=== PATIENT | female | born 1945 | race Caucasian/White ===

== ENCOUNTER 2018-01-31 09:54 | Outpatient (CLI) | payer MEDICARE | END 2018-01-31 09:55 | disposition home or self-care (01) | LOC: BICMAMMO 09:54 | PROVIDERS: ATTEND Obstetrics & Gynecology | DX: Z12.31 Encounter for screening mammogram for malignant neoplasm of breast (principal); R92.1 Mammographic calcification found on diagnostic imaging of breast | CPT/HCPCS: 77063; 77067 ==

== ENCOUNTER 2019-02-01 09:34 | Outpatient (CLI) | payer MEDICARE ==
--- NOTE | 2019-02-01 11:19 | MMO ---
Bilateral MAMMO Bilat Screen [facility]. CLINICAL HISTORY: Patient is 73 years old and is seen for screening. The patient has the following family history of breast cancer: sister. The patient has no personal history of cancer. VIEWS: The views performed were: bilateral craniocaudal with tomosynthesis and bilateral mediolateral oblique with tomosynthesis. FILMS COMPARED: The present examination has been compared to prior imaging studies performed at [facility] on 01/26/2015, 01/29/2016, 01/30/2017 and 01/31/2018. MAMMOGRAM FINDINGS: There are scattered fibroglandular densities. There are no suspicious masses, calcifications or areas of architectural distortion. There are benign appearing calcifications in both breasts. There are no suspicious masses, suspicious calcifications, or new areas of architectural distortion. IMPRESSION: THERE IS NO MAMMOGRAPHIC EVIDENCE OF MALIGNANCY. A ROUTINE FOLLOW-UP MAMMOGRAM IN 1 YEAR IS RECOMMENDED. THE RESULTS OF THIS EXAM WERE SENT TO THE PATIENT. ACR BI-RADS Category 2 - Benign finding MAMMOGRAPHY NOTE: 1. A negative mammogram report should not delay a biopsy if a dominant of clinically suspicious mass is present. 2. Approximately 10% to 15% of breast cancers are not detected by mammography. 3. Adenosis and dense breasts may obscure an underlying neoplasm. Reported by: ZUNILDA PATEL MD Electonically Signed: [id number]
== END 2019-02-01 09:35 | disposition home or self-care (01) ==
LOC: BICMAMMO 09:34
PROVIDERS: ATTEND Obstetrics & Gynecology
DX: Z12.31 Encounter for screening mammogram for malignant neoplasm of breast (principal); Z80.3 Family history of malignant neoplasm of breast
CPT/HCPCS: 77063; 77067

== ENCOUNTER 2020-02-04 08:31 | Outpatient (CLI) | payer MEDICARE ==
--- NOTE | 2020-02-04 09:12 | MMO ---
Bilateral MAMMO Bilat Screen [facility]. CLINICAL HISTORY: Patient is 74 years old and is seen for screening. The patient has the following family history of breast cancer: sister. The patient has no personal history of cancer. VIEWS: The views performed were: bilateral craniocaudal with tomosynthesis and bilateral mediolateral oblique with tomosynthesis. FILMS COMPARED: The present examination has been compared to prior imaging studies performed at [facility] on 01/29/2016, 01/30/2017, 01/31/2018 and 02/01/2019. This study has been interpreted with the assistance of computer-aided detection. MAMMOGRAM FINDINGS: There are scattered fibroglandular densities. Finding 1: There are stable benign appearing calcifications seen in both breasts. Finding 2: There are stable benign appearing densities seen in both breasts. There are no suspicious masses, suspicious calcifications, or new areas of architectural distortion. IMPRESSION: THERE IS NO MAMMOGRAPHIC EVIDENCE OF MALIGNANCY. A ROUTINE FOLLOW-UP MAMMOGRAM IN 1 YEAR IS RECOMMENDED. THE RESULTS OF THIS EXAM WERE SENT TO THE PATIENT. ACR BI-RADS Category 2 - Benign finding MAMMOGRAPHY NOTE: 1. A negative mammogram report should not delay a biopsy if a dominant of clinically suspicious mass is present. 2. Approximately 10% to 15% of breast cancers are not detected by mammography. 3. Adenosis and dense breasts may obscure an underlying neoplasm. Reported by: ANDREEA URIARTE MD Electonically Signed: [id number]
== END 2020-02-04 08:32 | disposition home or self-care (01) ==
LOC: BICMAMMO 08:31
PROVIDERS: ATTEND Obstetrics & Gynecology
DX: Z12.31 Encounter for screening mammogram for malignant neoplasm of breast (principal); Z80.3 Family history of malignant neoplasm of breast
CPT/HCPCS: 77063; 77067

== ENCOUNTER 2021-11-28 19:15 | Inpatient (IN) | payer MEDICARE ==
[2021-11-28 20:03] LABS: #Lymphocytes 1.2 thou/uL (1.20-3.40); #Monocytes 1.9 thou/uL (0.11-0.59); #Neutrophils 10.6 thou/uL (1.40-6.50); %Eosinophils 0.1 % (0.0-10.0); %Lymphocytes 8.5 % (21.0-51.0); %Monocytes 14.1 % (0.0-10.0); %Neutrophils 77.4 % (42.0-75.0); Hemoglobin 15.4 g/dL (12.0-16.0); Mean Corpuscular HGB CONC 36.4 g/dL (32.0-36.0); Mean Corpuscular Hemoglobin 35.8 pg (27.0-31.0); Mean Corpuscular Volume 98.5 fL (78.0-98.0); Mean Platelet Volume 7.3 fL (7.4-10.4); Platelet Count 218 thou/uL (130-400); RBC Distribution Width 10.9 % (11.5-14.5); White Blood Cell (WBC) Count 13.7 thou/uL (4.8-10.8)
[2021-11-28 20:23] LABS: Bacteria/HPF None Seen HPF (None Seen); Bilirubin Negative (Negative); Blood, Urine 1+ (Negative); Clarity Turbid (Clear); Glucose, Urine (Dipstick) Normal (Negative); Ketone, Urine Trace mg/dL (Negative); Leukocyte Negative Leu/uL (Negative); Nitrite Negative (Negative); Protein, Urine (Dipstick) 70 mg/dL (Neg-Trace); RBC/HPF 0-3 HPF (0-3); Renal Epithelial 0-3 HPF (None Seen); Squamous Epithelial 0-3 HPF (0-3); Urobilinogen Normal mg/dL (Less than 2); WBC/HPF 0-3 HPF (0-3); pH, Urine 5.5 (5.0-9.0)
[2021-11-28 20:24] LABS: ALT (SGPT) 38 U/L (8-55); AST (SGOT) 106 U/L (5-34); Albumin 4.5 g/dL (3.4-4.8); Alkaline Phosphatase 43 U/L (40-110); Anion Gap 18 mmol/L (10-20); BUN (Urea Nitrogen) 31 mg/dL (9.8-20.1); Bilirubin, Total 1.8 mg/dL (0.2-1.2); Calc. Creatinine Clearance 0 mL/min (70-130); Calcium 9.9 mg/dL (7.8-10.44); Carbon Dioxide 24 mmol/L (23-31); Chloride 103 mmol/L (98-107); Glucose 124 mg/dL (83-110); Lipase 25 U/L (8-78); Potassium 3.6 mmol/L (3.5-5.1); Protein, Total 7.5 g/dL (5.8-8.1); Sodium 141 mmol/L (136-145)
[2021-11-28 20:39] LABS: CK (CPK) 4371 U/L (29-168)
[2021-11-28] MEDS ORDERED: HYDROcodone/Acetaminophen 5/325 mg Tablet PO PRN (23:43)
[2021-11-28] MEDS ORDERED: Ondansetron PF 4 MG/2 ML Vial IVP PRN (23:43)
[2021-11-28] MEDS ORDERED: Acetaminophen 325 MG TAB PO PRN (23:43)
[2021-11-29] MEDS: Sodium Chloride 0.9% 1,000 ML IV SCH ×2 (00:34→07:51)
[2021-11-29 05:53] LABS: Anion Gap 10 mmol/L (10-20); BUN (Urea Nitrogen) 21 mg/dL (9.8-20.1); CK (CPK) 3284 U/L (29-168); Calc. Creatinine Clearance 57 mL/min (70-130); Calcium 8.2 mg/dL (7.8-10.44); Carbon Dioxide 27 mmol/L (23-31); Chloride 113 mmol/L (98-107); Glucose 89 mg/dL (83-110); Potassium 3.9 mmol/L (3.5-5.1); Sodium 146 mmol/L (136-145)
[2021-11-29 05:59] LABS: Band 7 % (5-11); Hemoglobin 12.2 g/dL (12.0-16.0); Lymphocytes 19 % (21-51); MDiff Complete? YES; Mean Corpuscular HGB CONC 34.6 g/dL (32.0-36.0); Mean Platelet Volume 6.9 fL (7.4-10.4); Monocytes 5 % (0-10); Neutrophil 60 % (42-75); Platelet Count 169 thou/uL (130-400); Platelet Morphology Comment Appears Adequate; RBC Morphology Normal; Reactive Lymphocytes 9 % (0-10); Red Blood Cell (RBC) Count 3.48 mill/uL (4.20-5.40); White Blood Cell (WBC) Count 9.6 thou/uL (4.8-10.8)
[2021-11-29] MEDS: Lactated Ringer's 1,000 ML IV SCH ×2 (08:37→22:38)
[2021-11-29] MEDS ORDERED: Heparin 5,000 UNITS/ML VIAL SC SCH (09:00)
[2021-11-29] MEDS ORDERED: Enoxaparin Sodium 40 MG/0.4 ML SYRINGE SC SCH (09:00)
[2021-11-29] MEDS ORDERED: Enoxaparin Sodium 40 MG/0.4 ML SYRINGE ONE (09:10)
[2021-11-29] MEDS ORDERED: Digoxin 0.5 MG/2 ML AMP ONE (12:32)
[2021-11-29] MEDS ORDERED: Magnesium 2 GM/50 ML BAG (IN WATER) ONE (12:32)
[2021-11-29 13:17] LABS: #Lymphocytes 1.6 thou/uL (1.20-3.40); #Monocytes 0.8 thou/uL (0.11-0.59); #Neutrophils 5.7 thou/uL (1.40-6.50); %Eosinophils 0.1 % (0.0-10.0); %Lymphocytes 19.6 % (21.0-51.0); %Monocytes 9.4 % (0.0-10.0); Hemoglobin 12.5 g/dL (12.0-16.0); Mean Corpuscular HGB CONC 34.9 g/dL (32.0-36.0); Mean Corpuscular Hemoglobin 35.1 pg (27.0-31.0); Mean Platelet Volume 7.2 fL (7.4-10.4); Platelet Count 167 thou/uL (130-400); Red Blood Cell (RBC) Count 3.55 mill/uL (4.20-5.40); White Blood Cell (WBC) Count 8.1 thou/uL (4.8-10.8)
[2021-11-29 13:49] LABS: ALT (SGPT) 32 U/L (8-55); AST (SGOT) 92 U/L (5-34); Albumin 3.4 g/dL (3.4-4.8); Alkaline Phosphatase 37 U/L (40-110); Anion Gap 14 mmol/L (10-20); BUN (Urea Nitrogen) 16 mg/dL (9.8-20.1); Bilirubin, Total 1.1 mg/dL (0.2-1.2); Calc. Creatinine Clearance 58 mL/min (70-130); Calcium 8.1 mg/dL (7.8-10.44); Carbon Dioxide 21 mmol/L (23-31); Chloride 111 mmol/L (98-107); Globulin 2.4 g/dL (2.4-3.5); Glucose 143 mg/dL (83-110); Magnesium 3.3 mg/dL (1.6-2.6); Potassium 3.2 mmol/L (3.5-5.1); Protein, Total 5.8 g/dL (5.8-8.1); Sodium 143 mmol/L (136-145)
[2021-11-29] MEDS ORDERED: Diltiazem 125 MG/25 ML ONE ×2 (13:55→13:59)
[2021-11-29] MEDS ORDERED: Iopamidol-370 76% 500 ML 1 ML ONE (14:00)
[2021-11-29] MEDS ORDERED: Benzonatate 100 MG CAP PO PRN (15:08)
[2021-11-29] MEDS ORDERED: Amiodarone 150 MG/3 ML VIAL ONE (17:42)
[2021-11-29] MEDS ORDERED: Communication Order-Pharmacy FS ONE (17:52)
[2021-11-29] MEDS ORDERED: Amiodarone 450 MG, Admixture Fee 1 EACH in Dextrose 5% in Water 250 ML IVPB SCH (18:00)
[2021-11-29] MEDS ORDERED: Albuterol 200 PUFF (6.7GM INHALER) INH PRN (18:30)
[2021-11-29] MEDS: Enoxaparin Sodium 60 MG/0.6 ML SYRINGE SC SCH (22:37)
[2021-11-30] MEDS: Lactated Ringer's 1,000 ML IV SCH ×3 (00:17→16:49)
[2021-11-30 04:24] LABS: #Lymphocytes 1.3 thou/uL (1.20-3.40); #Monocytes 0.8 thou/uL (0.11-0.59); %Basophils 0.6 % (0.0-1.0); %Eosinophils 0.3 % (0.0-10.0); %Lymphocytes 18.2 % (21.0-51.0); %Monocytes 11.5 % (0.0-10.0); %Neutrophils 69.4 % (42.0-75.0); Hemoglobin 11.8 g/dL (12.0-16.0); Mean Corpuscular Hemoglobin 35.1 pg (27.0-31.0); Mean Platelet Volume 6.9 fL (7.4-10.4); Platelet Count 161 thou/uL (130-400); RBC Distribution Width 10.8 % (11.5-14.5); Red Blood Cell (RBC) Count 3.37 mill/uL (4.20-5.40); White Blood Cell (WBC) Count 7.2 thou/uL (4.8-10.8)
[2021-11-30 04:45] LABS: Anion Gap 13 mmol/L (10-20); BUN (Urea Nitrogen) 9 mg/dL (9.8-20.1); CK (CPK) 2333 U/L (29-168); Calc. Creatinine Clearance 72 mL/min (70-130); Calcium 7.8 mg/dL (7.8-10.44); Carbon Dioxide 24 mmol/L (23-31); Chloride 106 mmol/L (98-107); Glucose 100 mg/dL (83-110); Magnesium 1.8 mg/dL (1.6-2.6); Sodium 140 mmol/L (136-145)
[2021-11-30] MEDS ORDERED: Potassium Chloride 40 MEQ in Premix Bag 1 BAG IVPB SCH (09:00)
[2021-11-30] MEDS: Potassium Chloride 20 MEQ in Premix Bag 1 BAG IVPB SCH ×2 (12:39→14:48)
[2021-11-30] MEDS: Enoxaparin Sodium 60 MG/0.6 ML SYRINGE SC SCH ×2 (12:39→22:09)
[2021-11-30 14:49] VITALS: BMI 22.1
[2021-11-30] MEDS: Icosapent Ethyl 1 GM CAPSULE PO SCH (19:20)
[2021-11-30] MEDS: Dronedarone HCl 400 MG TAB PO SCH (19:20)
[2021-11-30] MEDS: Brimonidine Tartrate 0.2% Ophth Soln 5 ml Bottle EA EYE SCH (22:08)
[2021-11-30] MEDS: Timolol 0.5% Ophth Soln 5 ml Bottle EA EYE SCH (22:09)
[2021-11-30] MEDS: Atorvastatin Calcium 10 MG TAB PO SCH (22:09)
[2021-12-01] MEDS: Lactated Ringer's 1,000 ML IV SCH ×4 (02:00→20:19)
[2021-12-01 05:18] LABS: #Basophils 0.1 thou/uL (0.0-0.2); #Eosinphils 0.1 thou/uL (0.0-0.7); #Monocytes 0.7 thou/uL (0.11-0.59); #Neutrophils 4.3 thou/uL (1.40-6.50); %Basophils 1.6 % (0.0-1.0); %Eosinophils 0.9 % (0.0-10.0); %Lymphocytes 16.1 % (21.0-51.0); %Monocytes 11.8 % (0.0-10.0); %Neutrophils 69.6 % (42.0-75.0); Hemoglobin 12.2 g/dL (12.0-16.0); Mean Corpuscular HGB CONC 34.7 g/dL (32.0-36.0); Mean Corpuscular Hemoglobin 34.6 pg (27.0-31.0); Mean Corpuscular Volume 99.9 fL (78.0-98.0); Mean Platelet Volume 6.9 fL (7.4-10.4); Platelet Count 161 thou/uL (130-400); RBC Distribution Width 10.9 % (11.5-14.5); Red Blood Cell (RBC) Count 3.54 mill/uL (4.20-5.40); White Blood Cell (WBC) Count 6.2 thou/uL (4.8-10.8)
[2021-12-01 05:48] LABS: ALT (SGPT) 38 U/L (8-55); AST (SGOT) 91 U/L (5-34); Albumin 3.2 g/dL (3.4-4.8); Alkaline Phosphatase 34 U/L (40-110); Anion Gap 10 mmol/L (10-20); BUN (Urea Nitrogen) 5 mg/dL (9.8-20.1); Bilirubin, Total 1.3 mg/dL (0.2-1.2); CK (CPK) 1947 U/L (29-168); Calc. Creatinine Clearance 77 mL/min (70-130); Calcium 8.4 mg/dL (7.8-10.44); Carbon Dioxide 28 mmol/L (23-31); Chloride 106 mmol/L (98-107); Estimated GFR 95; Globulin 2.3 g/dL (2.4-3.5); Glucose 88 mg/dL (83-110); Magnesium 1.6 mg/dL (1.6-2.6); Potassium 3.4 mmol/L (3.5-5.1); Protein, Total 5.5 g/dL (5.8-8.1); Sodium 141 mmol/L (136-145)
[2021-12-01] MEDS: Icosapent Ethyl 1 GM CAPSULE PO SCH ×2 (10:02→18:38)
[2021-12-01] MEDS: Enoxaparin Sodium 60 MG/0.6 ML SYRINGE SC SCH ×2 (10:02→20:18)
[2021-12-01] MEDS: Dronedarone HCl 400 MG TAB PO SCH ×2 (10:03→18:38)
[2021-12-01] MEDS: Lisinopril 20 MG TAB PO SCH (10:03)
[2021-12-01] MEDS: Brimonidine Tartrate 0.2% Ophth Soln 5 ml Bottle EA EYE SCH ×2 (10:04→20:18)
[2021-12-01] MEDS: Timolol 0.5% Ophth Soln 5 ml Bottle EA EYE SCH ×2 (10:04→20:18)
[2021-12-01] MEDS: Atorvastatin Calcium 10 MG TAB PO SCH (20:17)
[2021-12-02 04:46] LABS: #Eosinphils 0.1 thou/uL (0.0-0.7); #Lymphocytes 1.2 thou/uL (1.20-3.40); #Monocytes 0.7 thou/uL (0.11-0.59); #Neutrophils 4.1 thou/uL (1.40-6.50); %Basophils 0.1 % (0.0-1.0); %Eosinophils 1.4 % (0.0-10.0); %Lymphocytes 19.8 % (21.0-51.0); %Neutrophils 66.7 % (42.0-75.0); Hemoglobin 11.3 g/dL (12.0-16.0); Mean Corpuscular HGB CONC 34.1 g/dL (32.0-36.0); Mean Corpuscular Volume 99.9 fL (78.0-98.0); Mean Platelet Volume 6.6 fL (7.4-10.4); Platelet Count 160 thou/uL (130-400); RBC Distribution Width 10.9 % (11.5-14.5); Red Blood Cell (RBC) Count 3.32 mill/uL (4.20-5.40); White Blood Cell (WBC) Count 6.2 thou/uL (4.8-10.8)
[2021-12-02 05:11] LABS: Anion Gap 11 mmol/L (10-20); BUN (Urea Nitrogen) 7 mg/dL (9.8-20.1); CK (CPK) 1070 U/L (29-168); Calc. Creatinine Clearance 75 mL/min (70-130); Calcium 8.1 mg/dL (7.8-10.44); Carbon Dioxide 28 mmol/L (23-31); Chloride 106 mmol/L (98-107); Estimated GFR 94; Glucose 89 mg/dL (83-110); Potassium 3.1 mmol/L (3.5-5.1); Sodium 142 mmol/L (136-145)
[2021-12-02] MEDS: Lactated Ringer's 1,000 ML IV SCH ×2 (06:18→14:35)
[2021-12-02] MEDS ORDERED: Dronedarone HCl 400 MG TAB PO SCH (09:30)
[2021-12-02] MEDS: Dronedarone HCl 400 MG TAB PO SCH ×2 (10:07→19:25)
[2021-12-02] MEDS: Icosapent Ethyl 1 GM CAPSULE PO SCH ×2 (10:07→19:25)
[2021-12-02] MEDS: Lisinopril 20 MG TAB PO SCH (10:08)
[2021-12-02] MEDS: Apixaban 5 MG TAB PO SCH ×2 (10:09→21:27)
[2021-12-02] MEDS: Brimonidine Tartrate 0.2% Ophth Soln 5 ml Bottle EA EYE SCH ×2 (10:09→21:28)
[2021-12-02] MEDS: Timolol 0.5% Ophth Soln 5 ml Bottle EA EYE SCH ×2 (10:09→21:27)
[2021-12-02] MEDS ORDERED: Potassium Chloride 20 MEQ TAB PO SCH (15:00)
[2021-12-02] MEDS: Atorvastatin Calcium 10 MG TAB PO SCH (21:27)
[2021-12-03 08:36] LABS: #Eosinphils 0.1 thou/uL (0.0-0.7); #Lymphocytes 1.2 thou/uL (1.20-3.40); #Monocytes 0.8 thou/uL (0.11-0.59); #Neutrophils 5.6 thou/uL (1.40-6.50); %Basophils 0.3 % (0.0-1.0); %Eosinophils 1.3 % (0.0-10.0); %Lymphocytes 15.3 % (21.0-51.0); %Monocytes 10.8 % (0.0-10.0); %Neutrophils 72.4 % (42.0-75.0); Hemoglobin 12.1 g/dL (12.0-16.0); Mean Corpuscular HGB CONC 34.7 g/dL (32.0-36.0); Mean Corpuscular Hemoglobin 34.1 pg (27.0-31.0); Mean Corpuscular Volume 98.5 fL (78.0-98.0); Mean Platelet Volume 6.8 fL (7.4-10.4); Platelet Count 196 thou/uL (130-400); Red Blood Cell (RBC) Count 3.55 mill/uL (4.20-5.40); White Blood Cell (WBC) Count 7.8 thou/uL (4.8-10.8)
[2021-12-03 08:56] LABS: Anion Gap 12 mmol/L (10-20); BUN (Urea Nitrogen) 10 mg/dL (9.8-20.1); Calc. Creatinine Clearance 68 mL/min (70-130); Calcium 8.3 mg/dL (7.8-10.44); Carbon Dioxide 26 mmol/L (23-31); Chloride 106 mmol/L (98-107); Estimated GFR 92; Glucose 98 mg/dL (83-110); Potassium 3.2 mmol/L (3.5-5.1); Sodium 141 mmol/L (136-145)
[2021-12-03] MEDS: Apixaban 5 MG TAB PO SCH (10:34)
[2021-12-03] MEDS: Lisinopril 20 MG TAB PO SCH (10:34)
[2021-12-03] MEDS: Dronedarone HCl 400 MG TAB PO SCH (10:34)
[2021-12-03] MEDS: Brimonidine Tartrate 0.2% Ophth Soln 5 ml Bottle EA EYE SCH (10:35)
[2021-12-03] MEDS: Timolol 0.5% Ophth Soln 5 ml Bottle EA EYE SCH (10:35)
[2021-12-03] MEDS: Icosapent Ethyl 1 GM CAPSULE PO SCH (10:44)
[2021-12-03 11:26] VITALS: BP 146/80; TEMP 96.8
[2021-12-07] MEDS ORDERED: Non-Formulary Item 1 EACH (Alendronate Sodium [Alendronate Sodium] 35 MG Tablet) PO SCH (09:00)
== END 2021-12-03 15:50 | disposition swing bed (61) | DRG 557 ==
LOC: ERS 19:15 → ERHOLD 21:35 → 2NO 11-29 20:25
PROVIDERS: ADMIT Hospitalist; ATTEND Hospitalist
PROC: 8E0ZXY6 Isolation (ICD-10-PCS; principal; 2021-11-28)
DX: M62.82 Rhabdomyolysis (principal); U07.1 COVID-19; I48.0 Paroxysmal atrial fibrillation; E86.0 Dehydration; G24.3 Spasmodic torticollis; E86.1 Hypovolemia; F17.210 Nicotine dependence, cigarettes, uncomplicated; I10 Essential (primary) hypertension; E78.5 Hyperlipidemia, unspecified; Z98.42 Cataract extraction status, left eye; Z98.41 Cataract extraction status, right eye; Z82.49 Family history of ischemic heart disease and other diseases of the circulatory system; Z95.810 Presence of automatic (implantable) cardiac defibrillator; Z79.899 Other long term (current) drug therapy
CPT/HCPCS: 36415; 51701; 70450; 71045; 71275; 80048; 80053; 81003; 81015; 82140; 82550; 83690; 83735; 83880; 84443; 84484; 85025; 87040; 93005; 93010; 93306; 96365; 96366; 96375; 96376; J0282; J1160; J1650; J3475; J3480; J7050; J7070; J7120; Q9967; U0003; U0005

== ENCOUNTER 2022-12-28 07:13 | Inpatient (IN) | payer MEDICARE ==
[2022-12-28] MEDS ORDERED: GASTROGRAFIN 30 ML BOT ONE (09:27)
[2022-12-28 15:49] LABS: #Basophils 0.1 thou/uL (0.0-0.2); #Eosinphils 0.2 thou/uL (0.0-0.7); #Monocytes 0.8 thou/uL (0.11-0.59); #Neutrophils 8.8 thou/uL (1.40-6.50); %Basophils 0.5 % (0.0-1.0); %Eosinophils 1.3 % (0.0-10.0); %Lymphocytes 13.8 % (21.0-51.0); %Monocytes 6.9 % (0.0-10.0); %Neutrophils 77.1 % (42.0-75.0); Hemoglobin 14.2 g/dL (12.0-16.0); Mean Corpuscular HGB CONC 34.4 g/dL (32.0-36.0); Mean Corpuscular Hemoglobin 33.6 pg (27.0-31.0); Mean Corpuscular Volume 97.6 fl (78.0-98.0); Mean Platelet Volume 9.4 fL (7.4-10.4); Platelet Count 264 10x3/uL (130-400); RBC Distribution Width 14.1 % (11.5-14.5); Red Blood Cell (RBC) Count 4.23 mill/uL (4.20-5.40); White Blood Cell (WBC) Count 11.4 10x3/uL (4.8-10.8)
[2022-12-28] MEDS ORDERED: Acetaminophen 650 MG Suppository PR PRN (15:57)
[2022-12-28] MEDS ORDERED: Ondansetron PF 4 MG/2 ML Vial IVP PRN (15:57)
[2022-12-28 16:15] LABS: ALT (SGPT) 32 U/L (8-55); AST (SGOT) 29 U/L (5-34); Albumin 3.8 g/dL (3.4-4.8); Alkaline Phosphatase 67 U/L (40-110); Anion Gap 11 mmol/L (10-20); BUN (Urea Nitrogen) 21 mg/dL (9.8-20.1); Bilirubin, Total 0.6 mg/dL (0.2-1.2); Calc. Creatinine Clearance 0 mL/min (70-130); Calcium 9.4 mg/dL (7.8-10.44); Carbon Dioxide 30 mmol/L (23-31); Chloride 100 mmol/L (98-107); Estimated GFR 92; Globulin 3.1 g/dL (2.4-3.5); Glucose 92 mg/dL (83-110); Potassium 4.3 mmol/L (3.5-5.1); Protein, Total 6.9 g/dL (5.8-8.1); Sodium 137 mmol/L (136-145)
[2022-12-28] MEDS ORDERED: Piperacillin/Tazobactam 4.5 GM VIAL ONE (16:17)
[2022-12-28] MEDS ORDERED: Dextrose 5 %-0.45 % NaCl 1,000 ML IV SCH (16:45)
[2022-12-28 18:21] VITALS: BMI 18.3
[2022-12-28] MEDS: Famotidine/PF 20 mg/2ml Vial SLOW IVP SCH (20:54)
[2022-12-28] MEDS: Piperacillin/Tazobactam 3.375 GM in Sodium Chloride 0.9% 100 ML IVPB SCH (20:55)
[2022-12-28] MEDS ORDERED: Piperacillin/Tazobactam 4.5 GM in Sodium Chloride 0.9% 100 ML IVPB SCH (22:00)
[2022-12-29] MEDS: Piperacillin/Tazobactam 3.375 GM in Sodium Chloride 0.9% 100 ML IVPB SCH ×3 (03:51→20:17)
[2022-12-29 05:39] LABS: #Basophils 0.1 thou/uL (0.0-0.2); #Eosinphils 0.2 thou/uL (0.0-0.7); #Neutrophils 6.6 thou/uL (1.40-6.50); %Basophils 0.8 % (0.0-1.0); %Eosinophils 1.6 % (0.0-10.0); %Lymphocytes 18.1 % (21.0-51.0); %Monocytes 10.4 % (0.0-10.0); %Neutrophils 68.8 % (42.0-75.0); Hemoglobin 13.7 g/dL (12.0-16.0); Mean Corpuscular HGB CONC 34.5 g/dL (32.0-36.0); Mean Corpuscular Hemoglobin 34.2 pg (27.0-31.0); Mean Platelet Volume 9.3 fL (7.4-10.4); Platelet Count 237 10x3/uL (130-400); RBC Distribution Width 13.8 % (11.5-14.5); Red Blood Cell (RBC) Count 4.01 mill/uL (4.20-5.40); White Blood Cell (WBC) Count 9.6 10x3/uL (4.8-10.8)
[2022-12-29 09:18] LABS: Anion Gap 12 mmol/L (10-20); BUN (Urea Nitrogen) 20 mg/dL (9.8-20.1); Calc. Creatinine Clearance 53 mL/min (70-130); Calcium 9.3 mg/dL (7.8-10.44); Carbon Dioxide 27 mmol/L (23-31); Chloride 105 mmol/L (98-107); Estimated GFR 86; Glucose 97 mg/dL (83-110); Potassium 4.2 mmol/L (3.5-5.1); Sodium 140 mmol/L (136-145)
[2022-12-29] MEDS: Famotidine/PF 20 mg/2ml Vial SLOW IVP SCH ×2 (09:47→20:18)
[2022-12-29] MEDS ORDERED: Iopamidol-370 76% 500 ML MDV (1 ML CHARGE) ONE (15:16)
[2022-12-29] MEDS: Brimonidine Tartrate 0.2% Ophth Soln 5 ml Bottle EA EYE SCH (20:17)
[2022-12-29] MEDS: Timolol 0.5% Ophth Soln 5 ml Bottle EA EYE SCH (20:18)
[2022-12-30] MEDS: Piperacillin/Tazobactam 3.375 GM in Sodium Chloride 0.9% 100 ML IVPB SCH ×3 (04:47→20:54)
[2022-12-30] MEDS: Famotidine/PF 20 mg/2ml Vial SLOW IVP SCH ×2 (08:24→20:54)
[2022-12-30] MEDS: Timolol 0.5% Ophth Soln 5 ml Bottle EA EYE SCH ×2 (08:24→20:55)
[2022-12-30] MEDS: Brimonidine Tartrate 0.2% Ophth Soln 5 ml Bottle EA EYE SCH ×2 (08:24→20:54)
[2022-12-30] MEDS ORDERED: Lidocaine 1% PF 5 ML VIAL ONE (08:59)
[2022-12-30] MEDS ORDERED: PROPOFOL 200 MG/20 ML VIAL ONE (08:59)
[2022-12-30] MEDS ORDERED: Polyethylene Glycol 3350 17 GM Packet PO PRN (17:05)
[2022-12-30] MEDS: FLUoxetine HCl 10 MG CAP PO SCH (20:54)
[2022-12-30] MEDS: Atorvastatin Calcium 10 MG TAB PO SCH (20:54)
[2022-12-30] MEDS: Apixaban 5 MG TAB PO SCH (20:54)
[2022-12-30] MEDS: Acetaminophen 650 MG/20.3 ML UDCUP PER TUBE PRN (21:50)
[2022-12-31] MEDS: Piperacillin/Tazobactam 3.375 GM in Sodium Chloride 0.9% 100 ML IVPB SCH ×3 (04:39→21:00)
[2022-12-31] MEDS: Apixaban 5 MG TAB PO SCH ×2 (09:12→21:00)
[2022-12-31] MEDS: Dronedarone HCl 400 MG TAB PO SCH ×2 (09:12→16:14)
[2022-12-31] MEDS: Timolol 0.5% Ophth Soln 5 ml Bottle EA EYE SCH ×2 (09:13→21:00)
[2022-12-31] MEDS: Brimonidine Tartrate 0.2% Ophth Soln 5 ml Bottle EA EYE SCH ×2 (09:13→21:00)
[2022-12-31] MEDS: Famotidine/PF 20 mg/2ml Vial SLOW IVP SCH ×2 (09:14→21:00)
[2022-12-31] MEDS: FLUoxetine HCl 10 MG CAP PO SCH (21:00)
[2022-12-31] MEDS: Atorvastatin Calcium 10 MG TAB PO SCH (21:00)
[2023-01-01] MEDS: Piperacillin/Tazobactam 3.375 GM in Sodium Chloride 0.9% 100 ML IVPB SCH ×2 (04:24→12:38)
[2023-01-01] MEDS: Dronedarone HCl 400 MG TAB PO SCH ×2 (08:35→16:38)
[2023-01-01] MEDS: Famotidine/PF 20 mg/2ml Vial SLOW IVP SCH ×2 (08:35→21:06)
[2023-01-01] MEDS: Apixaban 5 MG TAB PO SCH ×2 (08:35→21:06)
[2023-01-01] MEDS: Brimonidine Tartrate 0.2% Ophth Soln 5 ml Bottle EA EYE SCH ×2 (08:36→21:06)
[2023-01-01] MEDS: Timolol 0.5% Ophth Soln 5 ml Bottle EA EYE SCH ×2 (08:36→21:07)
[2023-01-01] MEDS: FLUoxetine HCl 10 MG CAP PO SCH (21:06)
[2023-01-01] MEDS: Atorvastatin Calcium 10 MG TAB PO SCH (21:06)
[2023-01-01] MEDS: Acetaminophen 650 MG/20.3 ML UDCUP PER TUBE PRN (21:06)
[2023-01-02] MEDS: Timolol 0.5% Ophth Soln 5 ml Bottle EA EYE SCH ×2 (09:02→22:17)
[2023-01-02] MEDS: Famotidine/PF 20 mg/2ml Vial SLOW IVP SCH ×2 (09:02→22:09)
[2023-01-02] MEDS: Brimonidine Tartrate 0.2% Ophth Soln 5 ml Bottle EA EYE SCH ×2 (09:02→22:08)
[2023-01-02] MEDS: Apixaban 5 MG TAB PO SCH ×2 (09:02→22:08)
[2023-01-02] MEDS: Dronedarone HCl 400 MG TAB PO SCH ×2 (09:02→16:59)
[2023-01-02] MEDS: Atorvastatin Calcium 10 MG TAB PO SCH (22:08)
[2023-01-02] MEDS: FLUoxetine HCl 10 MG CAP PO SCH (22:08)
[2023-01-03] MEDS: Dronedarone HCl 400 MG TAB PO SCH ×2 (09:21→17:12)
[2023-01-03] MEDS: Brimonidine Tartrate 0.2% Ophth Soln 5 ml Bottle EA EYE SCH ×2 (09:21→22:54)
[2023-01-03] MEDS: Famotidine/PF 20 mg/2ml Vial SLOW IVP SCH ×2 (09:21→22:50)
[2023-01-03] MEDS: Apixaban 5 MG TAB PO SCH ×2 (09:21→22:50)
[2023-01-03] MEDS: Timolol 0.5% Ophth Soln 5 ml Bottle EA EYE SCH ×2 (09:21→22:54)
[2023-01-03] MEDS: FLUoxetine HCl 10 MG CAP PO SCH (22:50)
[2023-01-03] MEDS: Atorvastatin Calcium 10 MG TAB PO SCH (22:50)
[2023-01-04] MEDS: Dronedarone HCl 400 MG TAB PO SCH (08:24)
[2023-01-04] MEDS: Timolol 0.5% Ophth Soln 5 ml Bottle EA EYE SCH (08:24)
[2023-01-04] MEDS: Apixaban 5 MG TAB PO SCH (08:24)
[2023-01-04] MEDS: Brimonidine Tartrate 0.2% Ophth Soln 5 ml Bottle EA EYE SCH (08:24)
[2023-01-04] MEDS: Famotidine/PF 20 mg/2ml Vial SLOW IVP SCH (08:26)
[2023-01-04 12:07] VITALS: BP 92/65; TEMP 97.5
== END 2023-01-04 13:22 | DRG 394 ==
LOC: ERS 07:13 → T4-B 15:35
PROVIDERS: ADMIT Internal Medicine; ATTEND Internal Medicine
PROC: 0DH63UZ Insertion of Feeding Device into Stomach, Percutaneous Approach (ICD-10-PCS; principal; 2022-12-30)
PROC: 0DP68UZ Removal of Feeding Device from Stomach, Via Natural or Artificial Opening Endoscopic (ICD-10-PCS; 2022-12-30)
DX: K94.23 Gastrostomy malfunction (principal); N17.9 Acute kidney failure, unspecified; I48.0 Paroxysmal atrial fibrillation; G24.3 Spasmodic torticollis; I10 Essential (primary) hypertension; E78.5 Hyperlipidemia, unspecified; F32.A Depression, unspecified; Z79.01 Long term (current) use of anticoagulants; Z79.899 Other long term (current) drug therapy; Y84.8 Other medical procedures as the cause of abnormal reaction of the patient, or of later complication, without mention of misadventure at the time of the procedure; Z98.41 Cataract extraction status, right eye; Z98.42 Cataract extraction status, left eye; R53.81 Other malaise; R13.12 Dysphagia, oropharyngeal phase
CPT/HCPCS: 74018; 74176; 74177; 80048; 80053; 85025; 96365; J1650; J2543; J2704; J3490; J7042; Q9963; Q9967; S0028

== ENCOUNTER 2024-03-27 14:23 | Emergency (ER) | payer MEDICARE | END 2024-03-27 17:17 | disposition home or self-care (01) | LOC: ERS 14:23 | DX: Z43.1 Encounter for attention to gastrostomy (principal); I10 Essential (primary) hypertension | CPT/HCPCS: 43762; 74018 ==

== ENCOUNTER 2025-01-25 16:08 | Emergency (ER) | payer MEDICARE ==
[~2025-01-25 16:08] MED LIST: GASTROGRAFIN 30 ML BOT ONE
[2025-01-25 17:16] LABS: CAUTI Indications for Culture Alt mental st,lethar; Glucose, Urine (Dipstick) Normal (Negative); Leukocyte 500 Leu/uL (Negative); Protein, Urine (Dipstick) 10 mg/dL (Neg-Trace); RBC/HPF Greater than 50 HPF (0-3); Specific Gravity, Urine 1.014 (1.002-1.036); WBC/HPF Greater than 50 HPF (0-3)
[2025-01-25 17:24] LABS: Bacteria/HPF 3+ HPF (None Seen)
[2025-01-25 17:25] LABS: Urine Culture Reflex Yes Yes
[2025-01-25 18:31] LABS: #Basophils 0.03 10x3/uL (0.0-0.2); #Eosinophils 0.24 10x3/uL (0.0-0.7); #Monocytes 0.67 10x3/uL (0.11-0.59); #Neutrophils 4.11 10x3/uL (1.40-6.50); %Basophils 0.4 % (0.0-1.0); %Eosinophils 3.3 % (0.0-10.0); %Lymphocytes 30.5 % (21.0-51.0); %Monocytes 9.2 % (0.0-10.0); %Neutrophils 56.1 % (42.0-75.0); Hematocrit 37.6 % (36.0-47.0); Hemoglobin 12.6 g/dL (12.0-16.0); Mean Corpuscular Hemoglobin 31.6 pg (27.0-31.0); Mean Corpuscular Volume 94.2 fL (78.0-98.0); Platelet Count 265 10x3/uL (130-400); Red Blood Cell (RBC) Count 3.99 mill/uL (4.20-5.40); White Blood Cell (WBC) Count 7.32 10x3/uL (4.8-10.8)
[2025-01-25 18:44] LABS: INR-International Normal Ratio 1.2; PTT 28.1 sec (22.9-36.1); Prothrombin Time 15.0 sec (12.0-14.7)
[2025-01-25 18:51] LABS: ALT (SGPT) 21 U/L (Less than 34); AST (SGOT) 29 U/L (11-34); Albumin 3.3 g/dL (3.1-4.5); Alkaline Phosphatase 77 U/L (40-110); Anion Gap 12 mmol/L (10-20); BUN (Urea Nitrogen) 25 mg/dL (9.8-20.1); Bilirubin, Total 0.7 mg/dL (0.3-1.2); Calc. Creatinine Clearance 0 mL/min (70-130); Calcium 9.0 mg/dL (7.8-10.44); Carbon Dioxide 32 mmol/L (23-31); Chloride 102 mmol/L (98-107); Globulin 3.8 g/dL (2.4-3.5); Glucose 89 mg/dL (83-110); Lipase 26 U/L (8-78); Potassium 3.6 mmol/L (3.5-5.1); Sodium 142 mmol/L (136-145)
[2025-01-25] MEDS ORDERED: SODIUM CHLORIDE 0.9% IVPB SCH (19:30)
[2025-01-25] MEDS ORDERED: CEFTAZIDIME FORTAZ IVPB SCH (19:30)
== END 2025-01-25 20:58 ==
LOC: ERS 16:08
DX: Z43.1 Encounter for attention to gastrostomy (principal); N39.0 Urinary tract infection, site not specified; I48.91 Unspecified atrial fibrillation; I10 Essential (primary) hypertension
CPT/HCPCS: 70450; 74018; 80053; 81001; 83605; 83690; 84484; 85025; 85610; 85730; 87040; 87077; 87086; 87186; 93005; J0713; J2250; Q9963; 43762; 51701; 96374; 96375

== ENCOUNTER 2025-02-10 10:42 | Inpatient (IN) | payer MEDICARE ==
[~2025-02-10 10:42] MED LIST changes: -GASTROGRAFIN 30 ML BOT ONE; +Iopamidol-370 76% 500 ML MDV (1 ML CHARGE) ONE
[2025-02-10 11:26] LABS: Actual Bicarbonate (HCO3v) 29.4 mEq/L (22-28); Analyzer IN Cardio ER; Base Excess 4.6 mEq/L (-2.0 to +3.0); Calcium, Ionized (venous) 1.07 mmol/L (1.16-1.32); Chloride (VBG) 115 mmol/L (98-106); Hematocrit-VBG 44 % (36.0-47.0); Hemoglobin (Hb) 14.9 g/dL (11.7-16.1); Potassium (VBG) 4.48 mmol/L (3.70-5.30)
[2025-02-10 11:28] LABS: Sodium 155 mmol/L (133-146)
[2025-02-10 11:53] LABS: INR-International Normal Ratio 1.6; Prothrombin Time 19.4 sec (12.0-14.7)
[2025-02-10 11:54] LABS: Acetaminophen 14 mcg/mL (Less than 10); PTT 36.4 sec (22.9-36.1); Salicylate Less than 8.0 mg/dL (Less than 8.0)
[2025-02-10] MEDS ORDERED: cefTRIAXone (ROCEPHIN) 2 GM VIAL ONE (12:05)
[2025-02-10 12:11] LABS: ALT (SGPT) 45 U/L (Less than 34); AST (SGOT) 41 U/L (11-34); Albumin 2.2 g/dL (3.1-4.5); Alkaline Phosphatase 84 U/L (40-110); Anion Gap 16 mmol/L (10-20); BUN (Urea Nitrogen) 40 mg/dL (9.8-20.1); Bilirubin, Total 0.4 mg/dL (0.3-1.2); Calc. Creatinine Clearance 0 mL/min (70-130); Calcium 8.9 mg/dL (7.8-10.44); Carbon Dioxide 29 mmol/L (23-31); Chloride 114 mmol/L (98-107); Globulin 5.5 g/dL (2.4-3.5); Glucose 159 mg/dL (83-110); Lipase 21 U/L (8-78); Magnesium 2.4 mg/dL (1.6-2.6); Potassium 4.3 mmol/L (3.5-5.1); Sodium 155 mmol/L (136-145)
[2025-02-10 12:34] LABS: Hematocrit 40.5 % (36.0-47.0); Hemoglobin 12.0 g/dL (12.0-16.0); Mean Corpuscular Hemoglobin 30.5 pg (27.0-31.0); Mean Corpuscular Volume 102.8 fL (78.0-98.0); Platelet Count 29 10x3/uL (130-400); Red Blood Cell (RBC) Count 3.94 mill/uL (4.20-5.40); White Blood Cell (WBC) Count 25.49 10x3/uL (4.8-10.8)
[2025-02-10 12:54] LABS: Macrocytosis SLIGHT = 6-15 cells HPF (0-5); Platelet Adequacy Comment Platelets Decreased; Polychromasia SLIGHT = 2-3 cells HPF (0-2); Smudge Cells 4.0 %; Stomatocytes SLIGHT = 2-5 cells HPF (0-1)
[2025-02-10] MEDS ORDERED: Azithromycin 500 MG VIAL ONE (13:27)
[2025-02-10] MEDS ORDERED: Ondansetron PF 4 MG/2 ML Vial IVP PRN (13:52)
[2025-02-10] MEDS ORDERED: Senokot S 8.6-50 MG TAB PER TUBE PRN (13:52)
[2025-02-10] MEDS ORDERED: Melatonin 3 MG TAB PER TUBE PRN (13:52)
[2025-02-10 19:09] LABS: Albumin 1.8 g/dL (3.1-4.5); Anion Gap 11 mmol/L (10-20); BUN (Urea Nitrogen) 34 mg/dL (9.8-20.1); BUN/Creatinine Ratio 59.65; Calc. Creatinine Clearance 0 mL/min (70-130); Calcium 7.7 mg/dL (7.8-10.44); Carbon Dioxide 24 mmol/L (23-31); Chloride 122 mmol/L (98-107); Glucose 145 mg/dL (83-110); Potassium 3.5 mmol/L (3.5-5.1); Sodium 153 mmol/L (136-145)
[2025-02-10] MEDS: Acetaminophen 325 MG TAB PER TUBE PRN (21:21)
[2025-02-10] MEDS: Albumin 25% 25 GM (100 mL) BOT IVPB SCH (21:31)
[2025-02-10] MEDS: Mupirocin 1 GM TUBE NASAL DECOLONIZATION TP SCH (21:31)
[2025-02-10] MEDS: Potassium Phosphate 30 MMOL in Sodium Chloride 0.9% 250 ML 250 ML IVPB SCH (22:31)
[2025-02-10 23:40] VITALS: BMI 21.4
[2025-02-11 05:51] LABS: Anion Gap 12 mmol/L (10-20); BUN (Urea Nitrogen) 33 mg/dL (9.8-20.1); Calc. Creatinine Clearance 63 mL/min (70-130); Calcium 7.8 mg/dL (7.8-10.44); Carbon Dioxide 28 mmol/L (23-31); Chloride 115 mmol/L (98-107); Glucose 185 mg/dL (83-110); Potassium 4.2 mmol/L (3.5-5.1); Sodium 151 mmol/L (136-145)
[2025-02-11 05:56] LABS: #Basophils 0.07 10x3/uL (0.0-0.2); #Eosinophils Less than 0.03 10x3/uL (0.0-0.7); #Monocytes 0.45 10x3/uL (0.11-0.59); #Neutrophils 20.65 10x3/uL (1.40-6.50); %Basophils 0.3 % (0.0-1.0); %Eosinophils 0.0 % (0.0-10.0); %Lymphocytes 7.0 % (21.0-51.0); %Monocytes 2.0 % (0.0-10.0); %Neutrophils 89.5 % (42.0-75.0); Hematocrit 36.6 % (36.0-47.0); Hemoglobin 10.5 g/dL (12.0-16.0); Mean Corpuscular Hemoglobin 30.8 pg (27.0-31.0); Mean Corpuscular Volume 107.3 fL (78.0-98.0); Platelet Count 74 10x3/uL (130-400); Red Blood Cell (RBC) Count 3.41 mill/uL (4.20-5.40); White Blood Cell (WBC) Count 23.07 10x3/uL (4.8-10.8)
[2025-02-11] MEDS ORDERED: Enoxaparin 40 MG (0.4 mL) SYRINGE SC SCH (09:00)
[2025-02-11 09:27] LABS: Magnesium 2.3 mg/dL (1.6-2.6)
[2025-02-11] MEDS ORDERED: Electrolyte Replacement Protocol 1 EACH FS SCH (10:45)
[2025-02-11] MEDS: Pantoprazole 40 MG VIAL IVP SCH (11:30)
[2025-02-11] MEDS: Mupirocin 1 GM TUBE NASAL DECOLOIZATION TP SCH (11:30)
[2025-02-11] MEDS: cefTRIAXone\\ROCEPHIN 2 GM in Sodium Chloride 0.9% 100 ML IVPB SCH (11:48)
[2025-02-11] MEDS: Azithromycin 500 MG in Sodium Chloride 0.9% 250 ML 250 ML IVPB SCH (11:48)
[2025-02-12 03:34] LABS: #Basophils 0.04 10x3/uL (0.0-0.2); #Eosinophils Less than 0.03 10x3/uL (0.0-0.7); #Monocytes 0.38 10x3/uL (0.11-0.59); #Neutrophils 18.63 10x3/uL (1.40-6.50); %Basophils 0.2 % (0.0-1.0); %Eosinophils 0.0 % (0.0-10.0); %Lymphocytes 4.4 % (21.0-51.0); %Monocytes 1.9 % (0.0-10.0); %Neutrophils 92.3 % (42.0-75.0); Hematocrit 32.5 % (36.0-47.0); Hemoglobin 10.1 g/dL (12.0-16.0); Mean Corpuscular Hemoglobin 30.6 pg (27.0-31.0); Mean Corpuscular Volume 98.5 fL (78.0-98.0); Platelet Adequacy Comment Platelets Decreased; Platelet Count 85 10x3/uL (130-400); RBC Morphology Within Normal Limits; Red Blood Cell (RBC) Count 3.30 mill/uL (4.20-5.40); White Blood Cell (WBC) Count 20.19 10x3/uL (4.8-10.8)
[2025-02-12 03:36] LABS: Anion Gap 11 mmol/L (10-20); BUN (Urea Nitrogen) 32 mg/dL (9.8-20.1); Calc. Creatinine Clearance 85 mL/min (70-130); Calcium 8.0 mg/dL (7.8-10.44); Carbon Dioxide 24 mmol/L (23-31); Chloride 106 mmol/L (98-107); Glucose 297 mg/dL (83-110); Magnesium 2.2 mg/dL (1.6-2.6); Potassium 3.3 mmol/L (3.5-5.1); Sodium 138 mmol/L (136-145)
[2025-02-12] MEDS: Potassium Bicarbonate/Cit Ac 20 MEQ TAB PER TUBE SCH (05:18)
[2025-02-12] MEDS ORDERED: PHOS-NAK 1 PKT PACK PO SCH (13:00)
[2025-02-12] MEDS: PHOS-NAK 1 PKT PACK PER TUBE SCH ×2 (14:37→22:26)
[2025-02-12] MEDS ORDERED: TRAVOPROST EA EYE SCH (21:00)
[2025-02-12] MEDS: Gabapentin 100 MG CAP PER TUBE SCH (22:25)
[2025-02-12] MEDS: Apixaban 5 MG TAB PER TUBE SCH (22:26)
[2025-02-12] MEDS: Lansoprazole 30 MG/10 ML UDCUP PER TUBE SCH (22:45)
[2025-02-13 06:23] LABS: #Basophils Less than 0.03 10x3/uL (0.0-0.2); #Eosinophils Less than 0.03 10x3/uL (0.0-0.7); #Monocytes 0.52 10x3/uL (0.11-0.59); #Neutrophils 13.92 10x3/uL (1.40-6.50); %Basophils 0.1 % (0.0-1.0); %Eosinophils 0.0 % (0.0-10.0); %Lymphocytes 6.0 % (21.0-51.0); %Monocytes 3.3 % (0.0-10.0); %Neutrophils 89.1 % (42.0-75.0); Hematocrit 30.2 % (36.0-47.0); Hemoglobin 9.6 g/dL (12.0-16.0); Mean Corpuscular Hemoglobin 30.2 pg (27.0-31.0); Mean Corpuscular Volume 95.0 fL (78.0-98.0); Platelet Count 74 10x3/uL (130-400); Red Blood Cell (RBC) Count 3.18 mill/uL (4.20-5.40); White Blood Cell (WBC) Count 15.63 10x3/uL (4.8-10.8)
[2025-02-13 06:26] LABS: Albumin 2.0 g/dL (3.1-4.5); Anion Gap 8 mmol/L (10-20); BUN (Urea Nitrogen) 22 mg/dL (9.8-20.1); BUN/Creatinine Ratio 44.00; Calc. Creatinine Clearance 88 mL/min (70-130); Calcium 8.1 mg/dL (7.8-10.44); Carbon Dioxide 29 mmol/L (23-31); Chloride 107 mmol/L (98-107); Glucose 101 mg/dL (83-110); Magnesium 2.1 mg/dL (1.6-2.6); Potassium 3.4 mmol/L (3.5-5.1); Sodium 141 mmol/L (136-145)
[2025-02-13] MEDS: Potassium Phosphate 30 MMOL in Sodium Chloride 0.9% 250 ML 250 ML IVPB SCH (09:07)
[2025-02-13 16:57] VITALS: BMI 23.9
[2025-02-14 00:29] VITALS: TEMP 98.9
[2025-02-14 06:04] LABS: #Basophils Less than 0.03 10x3/uL (0.0-0.2); #Eosinophils 0.03 10x3/uL (0.0-0.7); #Monocytes 0.48 10x3/uL (0.11-0.59); #Neutrophils 8.62 10x3/uL (1.40-6.50); %Basophils 0.0 % (0.0-1.0); %Eosinophils 0.3 % (0.0-10.0); %Lymphocytes 8.2 % (21.0-51.0); %Monocytes 4.8 % (0.0-10.0); %Neutrophils 85.4 % (42.0-75.0); Hematocrit 31.7 % (36.0-47.0); Hemoglobin 10.0 g/dL (12.0-16.0); Mean Corpuscular Hemoglobin 29.9 pg (27.0-31.0); Mean Corpuscular Volume 94.9 fL (78.0-98.0); Platelet Count 89 10x3/uL (130-400); Red Blood Cell (RBC) Count 3.34 mill/uL (4.20-5.40); White Blood Cell (WBC) Count 10.09 10x3/uL (4.8-10.8)
[2025-02-14 06:16] LABS: Anion Gap 10 mmol/L (10-20); BUN (Urea Nitrogen) 13 mg/dL (9.8-20.1); Calc. Creatinine Clearance 90 mL/min (70-130); Calcium 8.2 mg/dL (7.8-10.44); Carbon Dioxide 29 mmol/L (23-31); Chloride 106 mmol/L (98-107); Glucose 99 mg/dL (83-110); Potassium 3.9 mmol/L (3.5-5.1); Sodium 141 mmol/L (136-145)
[2025-02-14 13:27] VITALS: BP 126/73
== END 2025-02-14 14:10 | DRG 871 ==
LOC: ERS 10:42 → ERHOLD 13:21 → IMCU/EMU 19:52 → T4-B 02-12 12:57
PROVIDERS: ADMIT Internal Medicine; ATTEND Internal Medicine
PROC: 5A0935A Assistance with Respiratory Ventilation, Less than 24 Consecutive Hours, High Flow/Velocity Cannula (ICD-10-PCS; principal; 2025-02-10)
PROC: 5A09357 Assistance with Respiratory Ventilation, Less than 24 Consecutive Hours, Continuous Positive Airway Pressure (ICD-10-PCS; 2025-02-11)
PROC: 3E03329 Introduction of Other Anti-infective into Peripheral Vein, Percutaneous Approach (ICD-10-PCS; 2025-02-11)
DX: A41.9 Sepsis, unspecified organism (principal); G93.41 Metabolic encephalopathy; J69.0 Pneumonitis due to inhalation of food and vomit; J96.01 Acute respiratory failure with hypoxia; R53.2 Functional quadriplegia; E87.0 Hyperosmolality and hypernatremia; Z66 Do not resuscitate; I10 Essential (primary) hypertension; E78.5 Hyperlipidemia, unspecified; Z98.890 Other specified postprocedural states; Z98.49 Cataract extraction status, unspecified eye; H40.9 Unspecified glaucoma; R13.12 Dysphagia, oropharyngeal phase; F32.A Depression, unspecified; E83.39 Other disorders of phosphorus metabolism; E86.9 Volume depletion, unspecified; G24.3 Spasmodic torticollis; E87.6 Hypokalemia; I48.0 Paroxysmal atrial fibrillation; E86.0 Dehydration; Z79.899 Other long term (current) drug therapy
CPT/HCPCS: 36415; 36416; 70450; 71045; 71275; 80048; 80053; 80069; 80307; 82805; 83605; 83690; 83735; 83880; 84100; 84443; 84484; 85025; 85610; 85730; 87040; 87428; 93005; 94640; 96361; 96365; 96366; 96367; J0456; J0696; J2470; J2919; J7050; J7070; P9047; Q9967

== ENCOUNTER 2025-03-28 22:35 | Emergency (ER) | payer MEDICARE | END 2025-03-29 03:25 | LOC: ERS 22:35 | DX: K94.23 Gastrostomy malfunction (principal); I10 Essential (primary) hypertension | CPT/HCPCS: 43753; 74018 ==

== ENCOUNTER 2025-04-06 07:46 | Inpatient (IN) | payer MEDICARE ==
[2025-04-06 10:04] LABS: #Basophils 0.09 10x3/uL (0.0-0.2); #Eosinophils 0.38 10x3/uL (0.0-0.7); #Monocytes 0.94 10x3/uL (0.11-0.59); #Neutrophils 9.46 10x3/uL (1.40-6.50); %Basophils 0.7 % (0.0-1.0); %Eosinophils 3.0 % (0.0-10.0); %Lymphocytes 12.5 % (21.0-51.0); %Monocytes 7.5 % (0.0-10.0); %Neutrophils 75.4 % (42.0-75.0); Hematocrit 38.9 % (36.0-47.0); Hemoglobin 12.7 g/dL (12.0-16.0); Mean Corpuscular Hemoglobin 31.8 pg (27.0-31.0); Mean Corpuscular Volume 97.5 fL (78.0-98.0); Platelet Count 286 10x3/uL (130-400); Red Blood Cell (RBC) Count 3.99 mill/uL (4.20-5.40); White Blood Cell (WBC) Count 12.55 10x3/uL (4.8-10.8)
[2025-04-06 10:18] LABS: INR-International Normal Ratio 1.1; Prothrombin Time 14.1 sec (12.0-14.7)
[2025-04-06 10:19] LABS: PTT 31.0 sec (22.9-36.1)
[2025-04-06 10:22] LABS: ALT (SGPT) 194 U/L (Less than 34); AST (SGOT) 96 U/L (11-34); Albumin 3.0 g/dL (3.1-4.5); Alkaline Phosphatase 95 U/L (40-110); Anion Gap 14 mmol/L (10-20); BUN (Urea Nitrogen) 17 mg/dL (9.8-20.1); Bilirubin, Total 0.8 mg/dL (0.3-1.2); Calc. Creatinine Clearance 0 mL/min (70-130); Calcium 8.9 mg/dL (7.8-10.44); Carbon Dioxide 25 mmol/L (23-31); Chloride 102 mmol/L (98-107); Globulin 3.8 g/dL (2.4-3.5); Glucose 95 mg/dL (83-110); Potassium 3.9 mmol/L (3.5-5.1); Sodium 137 mmol/L (136-145)
[2025-04-06] MEDS ORDERED: Ondansetron PF 4 MG/2 ML Vial IVP PRN (11:13)
[2025-04-06] MEDS ORDERED: Melatonin 3 MG TAB PO PRN (11:13)
[2025-04-06] MEDS ORDERED: Bisacodyl 10 MG SUPP PR PRN (11:13)
[2025-04-06 13:07] VITALS: BMI 20.5
[2025-04-06] MEDS ORDERED: Lidocaine 2% 6 ML (Jelly) SYR ONE (14:17)
[2025-04-06] MEDS ORDERED: Sodium Bicarbonate 2.5 MEQ/5 ML SDV ONE (14:17)
[2025-04-06] MEDS ORDERED: Iopamidol 100 ML FS ONE (14:17)
[2025-04-06] MEDS ORDERED: Lidocaine 1% w/Epinephrine 1:100K 20 ML VIAL ONE (14:17)
[2025-04-06] MEDS ORDERED: Hyoscyamine SL 0.125 MG TAB PER TUBE PRN (15:47)
[2025-04-06] MEDS ORDERED: Morphine IR Tab 15 MG TAB PER TUBE PRN (15:47)
[2025-04-06] MEDS ORDERED: Acetaminophen/Codeine 30-300mg Tablet PER TUBE PRN (15:47)
[2025-04-06] MEDS ORDERED: Acetaminophen 325 MG TAB PER TUBE PRN (15:47)
[2025-04-06] MEDS ORDERED: GUAIFENESIN SF SOLN 200 MG/10 ML UDCUP PER TUBE PRN (15:47)
[2025-04-06 18:08] VITALS: BP 133/74; TEMP 97.4
[2025-04-06] MEDS ORDERED: Apixaban 5 MG TAB PER TUBE SCH (21:00)
[2025-04-06] MEDS ORDERED: Amiodarone 200 MG TAB PER TUBE SCH (21:00)
[2025-04-06] MEDS ORDERED: Apixaban 2.5 MG TAB PER TUBE SCH (21:00)
[2025-04-06] MEDS ORDERED: Brimonidine Tartrate 0.2% Ophth Soln 5 ml Bottle EA EYE SCH (21:00)
[2025-04-07] MEDS ORDERED: Lansoprazole 30 MG/10 ML UDCUP PER TUBE SCH (09:00)
== END 2025-04-06 18:30 | DRG 395 ==
LOC: ERS 07:46 → SURG B 09:18
PROVIDERS: ADMIT Internal Medicine; ATTEND Physician Assistant
PROC: 0DP6XUZ Removal of Feeding Device from Stomach, External Approach (ICD-10-PCS; principal; 2025-04-06)
PROC: 0DH63UZ Insertion of Feeding Device into Stomach, Percutaneous Approach (ICD-10-PCS; 2025-04-06)
DX: Z43.1 Encounter for attention to gastrostomy (principal); G24.3 Spasmodic torticollis; R13.10 Dysphagia, unspecified; I10 Essential (primary) hypertension; E78.5 Hyperlipidemia, unspecified; I48.91 Unspecified atrial fibrillation; E11.42 Type 2 diabetes mellitus with diabetic polyneuropathy; I48.0 Paroxysmal atrial fibrillation; K21.9 Gastro-esophageal reflux disease without esophagitis; Z79.899 Other long term (current) drug therapy; Z79.01 Long term (current) use of anticoagulants; Z99.3 Dependence on wheelchair
CPT/HCPCS: 36415; 43762; 80053; 85025; 85610; 85730; 99284; C1769; C1887; J7030; Q9967

== ENCOUNTER 2025-04-14 10:32 | Emergency (ER) | payer MEDICARE ==
[2025-04-14] MEDS ORDERED: GASTROGRAFIN 30 ML BOT ONE (11:31)
== END 2025-04-14 16:20 ==
LOC: ERS 10:32
DX: K94.23 Gastrostomy malfunction (principal); I48.91 Unspecified atrial fibrillation; I10 Essential (primary) hypertension; E78.5 Hyperlipidemia, unspecified; H40.9 Unspecified glaucoma
CPT/HCPCS: 43762; 74018